=== PATIENT | male | born 1980 | race Two or more races ===

== ENCOUNTER 2021-02-07 05:05 | Day surgery (SDC) | payer OTHER ==
[~2021-02-07 05:05] MED LIST: DAILY MULTIPLE1 EAC2; GABAPENT PO; PROTON PO; RELAFE PO; TRAMADOL PO
== END 2021-02-07 13:30 | disposition home or self-care (01) ==
LOC: CIR.AMB 05:05
PROVIDERS: ATTEND Specialist
DX: K80.10 Calculus of gallbladder with chronic cholecystitis without obstruction (principal); Z20.822 Contact with and (suspected) exposure to COVID-19

== ENCOUNTER → 2021-05-08 08:13 | Outpatient (CLI) | payer OTHER | END | disposition home or self-care (01) | LOC: LAB 08:13 | PROVIDERS: ATTEND Radiology Diagnostic Radiology | DX: N13.39 Other hydronephrosis (principal) ==

== ENCOUNTER 2021-05-09 09:15 | Outpatient (CLI) | payer OTHER | END 2021-05-09 09:22 | disposition home or self-care (01) | LOC: TOM 09:15 | PROVIDERS: ATTEND Family Medicine | DX: N12 Tubulo-interstitial nephritis, not specified as acute or chronic (principal); N40.1 Benign prostatic hyperplasia with lower urinary tract symptoms; N30.01 Acute cystitis with hematuria; N13.39 Other hydronephrosis ==

== ENCOUNTER 2021-06-21 06:49 | Outpatient (CLI) | payer OTHER | END 2021-06-21 06:54 | disposition home or self-care (01) | LOC: SONOGRAMA 06:49 → MAMO-SONO 07:15 | PROVIDERS: ATTEND Specialist | DX: R10.84 Generalized abdominal pain (principal) ==

== ENCOUNTER → 2021-06-23 | Outpatient (CLI) | payer OTHER | END | disposition home or self-care (01) | LOC: NUCLEAR 08:00 | DX: I82.403 Acute embolism and thrombosis of unspecified deep veins of lower extremity, bilateral (principal) ==

== ENCOUNTER 2021-07-07 07:37 | Outpatient (CLI) | payer OTHER | END 2021-07-07 07:44 | disposition home or self-care (01) | LOC: MRI 07:37 | PROVIDERS: ATTEND Internal Medicine Hematology & Oncology | DX: I82.220 Acute embolism and thrombosis of inferior vena cava (principal); K90.0 Celiac disease | CPT/HCPCS: 74182 ==

== ENCOUNTER → 2021-11-09 11:56 | Outpatient (CLI) | payer OTHER | END | disposition home or self-care (01) | LOC: MRI 11:56 | PROVIDERS: ATTEND Family Medicine | DX: M54.50 Low back pain, unspecified (principal) ==

== ENCOUNTER 2023-05-10 07:51 | Outpatient (CLI) | payer OTHER | END 2023-05-10 08:21 | disposition home or self-care (01) | LOC: SONOGRAMA 07:51 | PROVIDERS: ATTEND Family Medicine | DX: R10.30 Lower abdominal pain, unspecified (principal); N20.0 Calculus of kidney; N13.6 Pyonephrosis ==

== ENCOUNTER 2024-09-04 08:15 | Outpatient (CLI) | payer OTHER | END 2024-09-04 08:28 | disposition home or self-care (01) | LOC: SONOGRAMA 08:15 | PROVIDERS: ATTEND Family Medicine | DX: N40.0 Benign prostatic hyperplasia without lower urinary tract symptoms (principal) ==

== ENCOUNTER → 2024-09-04 08:59 | Outpatient (CLI) | payer OTHER ==
[2024-09-04 10:25] LABS: HEMATOCRIT 42.7 % (39.0-48.0); HEMOGLOBIN 14.7 g/dL (13-16.00); MEAN CELL VOLUME 89.1 fL (80.0-100.00); MEAN CORPUSCULAR HEMOGLOBIN 30.7 pg (27.00-32.0); MEAN CORPUSCULAR HGB CONC 34.4 g/dl (32.0-36.0); PLATELET COUNT 148 K/uL (150-450); RED BLOOD COUNT 4.79 M/uL (4.00-6.00); RED CELL DISTRIBUTION WIDTH 13.9 % (11.5-14.5)
[2024-09-04 11:44] LABS: ALBUMIN 3.7 gm/dL (3.4-5.0); BILIRUBIN TOTAL 0.51 mg/dL (0.3-1.2); CALCIUM 8.5 mg/dL (8.5-10.1); CREATININE SERUM 0.76 mg/dL (0.70-1.30); GFR 111.42; GLOBULINA 3.7 G/DL (2.4-3.5); POTASSIUM 3.88 mEq/L (3.5-5.1); T4 TOTAL 7.4 UG/DL (4.5-12.1); TOTAL PROTEIN 7.4 gm/dL (6.4-8.2); TSH 1.24 uIU/mL (0.358-3.74)
== END | disposition home or self-care (01) ==
LOC: LAB 08:59
PROVIDERS: ATTEND Family Medicine
DX: D50.8 Other iron deficiency anemias (principal)